=== PATIENT | male | born 1980 | race Caucasian/White ===

== ENCOUNTER 2016-12-19 18:00 | Emergency (ER) | payer SELFPAY ==
[~2016-12-19] VITALS: Ht 180.3 cm; Wt 88.6 kg
[2016-12-19 18:02] VITALS: BP 121/59
== END 2016-12-19 20:19 | disposition left against medical advice (07) ==
LOC: EMS 18:03
DX: K59.00 Constipation, unspecified (principal); Z53.21 Procedure and treatment not carried out due to patient leaving prior to being seen by health care provider

== ENCOUNTER 2016-12-19 21:13 | Emergency (ER) | payer MEDICAID ==
[~2016-12-19] VITALS: Ht 175.3 cm; Wt 88.6 kg
[2016-12-19 23:11] LABS: APPEARANCE,URINE CLEAR (CLEAR); GLUCOSE, URINE (UA) NEGATIVE (NEGATIVE); KETONES,URINE NEGATIVE (NEGATIVE); LEUKOCYTE ESTERASE ,URINE NEGATIVE (NEGATIVE); OCCULT BLOOD,URINE NEGATIVE (NEGATIVE); PROTEIN,URINE POS 1+ (NEGATIVE)
[2016-12-19 23:15] LABS: ADD UA MICROSCOPIC NO
[2016-12-20] MEDS ORDERED: MAGNESIUM CITRATE 300 ML ORAL SOLUTION PO ONE
[2016-12-20 00:14] VITALS: BP 123/69
== END 2016-12-20 00:31 | disposition home or self-care (01) ==
LOC: EMS 21:14
DX: K59.00 Constipation, unspecified (principal); F17.210 Nicotine dependence, cigarettes, uncomplicated
CPT/HCPCS: 74010; 99285

== ENCOUNTER 2024-09-18 11:30 | Inpatient (IN) | payer MEDICAID, OTHER ==
[~2024-09-18] VITALS: Ht 180.3 cm; Wt 99.8 kg
[2024-09-18] MEDS: ChlordiazePOXIDE HCL 25 MG CAPSULE PO ONE (12:00)
[2024-09-18 12:04] LABS: BASOPHILS % (AUTO) 0.4 % (0.0-2.0); HEMATOCRIT 41.3 % (41-53); HEMOGLOBIN 13.8 g/dL (13.5-17.5); LYMPHOCYTES # (AUTO) 2.6 K/uL (1.0-4.8); LYMPHOCYTES % (AUTO) 41.3 % (22.0-44.0); MEAN CORPUSCULAR HEMOGLOBIN 29.8 pg (26.0-34.0); MEAN CORPUSCULAR HGB CONC 33.5 G/dL (31.0-37.0); MEAN CORPUSCULAR VOLUME 89 fL (80-100); MONOCYTES # (AUTO) 0.5 K/uL (0.1-1.0); MONOCYTES % (AUTO) 8.1 % (2.0-9.0); NEUTROPHILS # (AUTO) 2.8 K/uL (1.8-7.7); NEUTROPHILS % (AUTO) 45.2 % (40.0-70.0); PLATELET COUNT (AUTO) 187 K/uL (150-450); RED BLOOD CELL COUNT(AUTO) 4.65 MIL/uL (4.50-5.90); RED CELL DISTRIBUTION WIDTH 14.3 % (11.5-14.5); WHITE BLOOD COUNT (AUTO) 6.2 K/uL (4.5-11.0)
[2024-09-18 12:12] LABS: COVID AG,FIA SOURCE NASAL SWAB
[2024-09-18] MEDS: BUPRENORPHINE HCL/NALOXONE HCL 8-2 MG SUBLINGUAL TABLET SL ONE (12:16)
[2024-09-18 12:20] LABS: APPEARANCE,URINE CLEAR (CLEAR); BILIRUBIN,URINE NEGATIVE (NEGATIVE); COLOR,URINE YELLOW (YELLOW); GLUCOSE, URINE (UA) NEGATIVE (NEGATIVE); KETONES,URINE NEGATIVE (NEGATIVE); LEUKOCYTE ESTERASE ,URINE NEGATIVE (NEGATIVE); NITRATE,URINE NEGATIVE (NEGATIVE); OCCULT BLOOD,URINE SMALL (NEGATIVE); PH,URINE 5.5 (5.0-8.0); PH,URINE DRUG SCREEN 5.5 (5.0-8.0); PROTEIN,URINE TRACE mg/dL (NEGATIVE); SPECIFIC GRAVITIY, URINE 1.031 (1.003-1.030); UROBILINOGEN,URINE <=1.0 mg/dL (<=1.0)
[2024-09-18 12:36] LABS: ALCOHOL, URINE DRUG SCREEN NEGATIVE (NEGATIVE); AMPHET/METH SCREEN,URINE NEGATIVE (NEGATIVE); BACTERIA,URINE None Seen /HPF (None Seen); BARBITURATE SCREEN, URINE NEGATIVE (NEGATIVE); BENZODIAZEPINES SCREEN,URINE POSITIVE (NEGATIVE); CANNABINOID SCREEN,URINE NEGATIVE (NEGATIVE); COCAINE SCREEN,URINE NEGATIVE (NEGATIVE); METHADONE SCREEN, URINE NEGATIVE (NEGATIVE); OPIATE SCREEN,URINE NEGATIVE (NEGATIVE); PHENCYCLIDINE SCREEN,URINE NEGATIVE (NEGATIVE); RBC,URINE 0-2 /HPF (0-2); WBC,URINE None Seen /HPF (0-5)
[2024-09-18 12:37] LABS: CALCIUM OXALATE CRYSTALS,UR Few /LPF (None Seen); SQUAMOUS EPITHELIAL CELL,UR None Seen /LPF (None Seen)
[2024-09-18 12:39] LABS: SARS-COV2 (COVID) ANTIGEN,FIA Negative (Negative)
[2024-09-18 12:50] LABS: ANION GAP 6 mmol/L (8-16); CALCIUM, TOTAL 8.6 mg/dL (8.8-10.5); CARBON DIOXIDE 29 mmol/L (22-29); CHLORIDE 105 mmol/L (98-107); CREATININE 0.88 mg/dL (0.60-1.30); GLOMERULAR FILTR. RATE CALC > 60 mL/min (>60); GLUCOSE,RANDOM 75 mg/dL (70-110); POTASSIUM 3.8 mmol/L (3.5-5.1); SODIUM SERUM 140 mmol/L (136-145); UREA NITROGEN, BLOOD 11 mg/dL (7-18)
[2024-09-18 13:00] LABS: ALCOHOL, BLOOD (SERUM) < 3 mg/dL (0-10)
[2024-09-19 06:08] LABS: HEMOGLOBIN A1C 5.6 % (3.8-5.6)
[2024-09-19 06:17] LABS: CHOL/HDL RATIO 2.7 (4.2-7.3)
[2024-09-19] MEDS: LORazepam 2 MG TABLET PO PRN (09:41)
[2024-09-19] MEDS: HALOPERIDOL 5 MG TABLET PO PRN (18:56)
[2024-09-19 19:31] VITALS: O2SAT 98
[2024-09-19] MEDS: ZOLPIDEM TARTRATE 10 MG TABLET PO PRN (19:58)
[2024-09-20] VITALS (12 sets, daily range): BP systolic 104–132; BP diastolic 60–84; PULSE 63–98; RESP 17–18; TEMP 96.3–98.2; O2SAT 95–100
[2024-09-20] MEDS ORDERED: ALBUTEROL SULFATE HFA 90 MCG/PUFF 8 GM INHALER IH PRN (00:30)
[2024-09-20] MEDS ORDERED: BENZOCAINE/MENTHOL LOZENGE PO PRN (00:30)
[2024-09-20] MEDS ORDERED: ZOLPIDEM TARTRATE 10 MG TABLET PO PRN (00:30)
[2024-09-20] MEDS ORDERED: LORazepam 2 MG TABLET PO PRN (00:30)
[2024-09-20] MEDS ORDERED: ONDANSETRON 4 MG TABLET PO PRN (00:30)
[2024-09-20] MEDS ORDERED: HALOPERIDOL 5 MG TABLET PO PRN (00:30)
[2024-09-20] MEDS ORDERED: LOPERAMIDE HCL 2 MG CAPSULE PO PRN ×3 (00:30→09:15)
[2024-09-20] MEDS ORDERED: ACETAMINOPHEN 325 MG TABLET PO PRN ×2 (00:30→09:15)
[2024-09-20] MEDS ORDERED: MAG HYDROX/ALUMINUM HYD/SIMETH ES 30 ML SUSPENSION UDCUP PO PRN ×3 (00:30→09:15)
[2024-09-20] MEDS ORDERED: CloNIDine HCL 0.1 MG TABLET PO PRN ×2 (00:30→09:15)
[2024-09-20] MEDS ORDERED: PETROLATUM,WHITE 28 GM JELLY TP PRN (00:30)
[2024-09-20] MEDS ORDERED: BACITRACIN 28 GM OINTMENT TP PRN (00:30)
[2024-09-20] MEDS ORDERED: DOCUSATE SODIUM 100 MG CAPSULE PO PRN (00:30)
[2024-09-20] MEDS ORDERED: MAGNESIUM HYDROXIDE SUSPENSION 30 ML UDCUP PO PRN (00:30)
[2024-09-20] MEDS ORDERED: OMEPRAZOLE 20 MG CAPSULE PO PRN (00:30)
[2024-09-20] MEDS: IBUPROFEN 600 MG TABLET PO PRN (00:47)
[2024-09-20] MEDS ORDERED: INFLUENZA VIRUS VACCINE TVS (6MO+) 2024-25/PF 45 MCG/0.5 ML SYRINGE IM. ONE (06:00)
[2024-09-20] MEDS ORDERED: GuaiFENesin/D-METHORPHAN [SUGAR-FREE] 200-20MG/10 ML SYRUP UDCUP PO PRN (09:15)
[2024-09-20] MEDS ORDERED: HydrOXYzine PAMOATE 50 MG CAPSULE PO PRN ×2 (09:15)
[2024-09-20] MEDS ORDERED: TUBERCULIN, PURIFIED PROTEIN DERIVATIVE 5 TU/0.1 ML SYRINGE ID ONE (09:15)
[2024-09-20] MEDS ORDERED: IBUPROFEN 600 MG TABLET PO PRN (09:15)
[2024-09-20] MEDS ORDERED: PROMETHAZINE HCL 25 MG TABLET PO PRN (09:15)
[2024-09-20] MEDS: CYANOCOBALAMIN 1,000 MCG/ML VIAL IM ONE (09:44)
[2024-09-20] MEDS: CloNIDine HCL 0.1 MG TABLET PO SCH (12:30)
[2024-09-20] MEDS: MAGNESIUM HYDROXIDE SUSPENSION 30 ML UDCUP PO PRN (13:41)
[2024-09-20] MEDS: THIAMINE 100 MG TABLET PO SCH (16:04)
[2024-09-20] MEDS: MELATONIN 5 MG TABLET PO SCH (20:32)
[2024-09-20] MEDS: DIVALPROEX SODIUM 500 MG ER TABLET PO SCH (20:33)
[2024-09-20] MEDS: OLANZapine 5 MG RAPDIS TABLET PO SCH (20:33)
[2024-09-21 04:33] VITALS: BP 116/58; PULSE 72; RESP 18; TEMP 96.3; O2SAT 99
[2024-09-21 04:35] VITALS: BP 116/58; PULSE 72; RESP 18; TEMP 96.3; O2SAT 99
[2024-09-21 08:30] VITALS: BP 123/72; PULSE 78; RESP 18; TEMP 97; O2SAT 98
[2024-09-21 08:55] VITALS: BP 115/62; PULSE 67; RESP 18; TEMP 97.3; O2SAT 95
[2024-09-21] MEDS: FOLIC ACID 1 MG TABLET PO SCH (09:30)
[2024-09-21] MEDS: MULTIVITAMINS WITH MINERALS, THERAPEUTIC TABLET PO SCH (09:30)
[2024-09-21] MEDS: FLUoxetine HCL 10 MG CAPSULE PO SCH (09:31)
[2024-09-21 09:46] LABS: HEMOGLOBIN A1C 5.6 % (3.8-5.6)
[2024-09-21 10:04] LABS: CHOL/HDL RATIO 2.5 (4.2-7.3); FREE T4 (FREE THYROXINE) 1.06 ng/dL (0.76-1.46); THYROID STIMULATING HORMONE 0.79 uIU/mL (0.36-3.74)
[2024-09-21 12:30] VITALS: BP 118/87; PULSE 87; RESP 18
[2024-09-21 16:16] VITALS: BP 93/62
[2024-09-21] MEDS ORDERED: MELA5TAB40 PO (16:24)
[2024-09-21] MEDS ORDERED: FLUO-341 PO (16:24)
[2024-09-21] MEDS ORDERED: OLAN5TAB94 PO (16:24)
[2024-09-21] MEDS ORDERED: DIVA-153 PO (16:24)
== END 2024-09-21 17:55 | disposition home or self-care (01) | DRG 750 ==
LOC: EMS 11:30 → B2S 09-20 00:20
PROVIDERS: ADMIT Psychiatry & Neurology Psychiatry; ATTEND Psychiatry & Neurology Psychiatry
PROC: GZHZZZZ Group Psychotherapy (ICD-10-PCS; principal; 2024-09-21)
PROC: GZ51ZZZ Individual Psychotherapy, Behavioral (ICD-10-PCS; 2024-09-21)
PROC: GZ56ZZZ Individual Psychotherapy, Supportive (ICD-10-PCS; 2024-09-21)
DX: F25.9 Schizoaffective disorder, unspecified (principal); G93.41 Metabolic encephalopathy; F33.2 Major depressive disorder, recurrent severe without psychotic features; R45.851 Suicidal ideations; F11.20 Opioid dependence, uncomplicated; Z20.822 Contact with and (suspected) exposure to COVID-19; K59.00 Constipation, unspecified; G47.00 Insomnia, unspecified; F41.9 Anxiety disorder, unspecified; J44.9 Chronic obstructive pulmonary disease, unspecified; F17.210 Nicotine dependence, cigarettes, uncomplicated
CPT/HCPCS: 80048; 80061; 80307; 81001; 83036; 84439; 84443; 85025; 86592; 99285; G0480; J3420